=== PATIENT | female | born 1955 | race Hispanic/Latino ===

== ENCOUNTER → 2021-12-16 | Outpatient (CLI) | payer MEDICARE | LOC: RAH 11:03 | PROVIDERS: ATTEND Physician Assistant | DX: M48.061 Spinal stenosis, lumbar region without neurogenic claudication (principal); M47.816 Spondylosis without myelopathy or radiculopathy, lumbar region | CPT/HCPCS: 72114 ==

== ENCOUNTER → 2022-09-21 | Outpatient (CLI) | payer MEDICARE | END | disposition home or self-care (01) | LOC: RAH 08:36 | PROVIDERS: ATTEND Family Medicine | DX: N64.4 Mastodynia (principal); R10.11 Right upper quadrant pain | CPT/HCPCS: 76705 ==

== ENCOUNTER → 2022-09-26 | Outpatient (CLI) | payer MEDICARE | END | disposition home or self-care (01) | LOC: RAH 17:30 | PROVIDERS: ATTEND Family Medicine | DX: N64.4 Mastodynia (principal) ==

== ENCOUNTER → 2022-11-15 | Outpatient (CLI) | payer MEDICARE | END | disposition home or self-care (01) | LOC: RAH 14:11 | PROVIDERS: ATTEND Physician Assistant | DX: M43.16 Spondylolisthesis, lumbar region (principal); M41.26 Other idiopathic scoliosis, lumbar region; M54.50 Low back pain, unspecified; M48.07 Spinal stenosis, lumbosacral region | CPT/HCPCS: 72110 ==

== ENCOUNTER 2024-10-13 19:58 | Emergency (ER) | payer MEDICARE ==
[~2024-10-13] VITALS: Ht 160 cm; Wt 72.6 kg
[2024-10-13 22:48] VITALS: BP 126/74; PULSE 74; RESP 20; TEMP 98.6; O2SAT 100
[2024-10-13] MEDS: TRIAMCINOLONE ACETONIDE 40 MG/ML 1ML VIAL IM ONE (22:53)
[2024-10-13] MEDS: ketOROlac 60 MG VIAL (30MG/ML) IM ONE (22:53)
[2024-10-13] MEDS: ORPHENADRINE 60MG/2ML IM ONE (22:53)
--- NOTE | 2024-10-13 23:00 | ERN ---
ED Note History of Present Illness Stated Complaint: PAIN, HIGH BP Chief Complaint: Lower Extremity Pain/Injury Time Seen by MD: 20:02 Time Seen by Midlevel: 20:02 Dictation: The patient is a 69-year-old female with a history of diabetes, hypertension who presents to the emergency department with left lower leg pain. Patient reports that she has been dealing with this sciatic nerve pain for over a year but today got worse. Reports she has been seeing her primary doctor for this problem but is pending review of results of imaging with . Patient denies any recent traumas, denies any urinary or fecal incontinence Allergies: Coded Allergies: No Known Allergies (Unverified Allergy, Unknown, 10/13/24) Past Medical History Past Medical History: Diabetes-Type II, High Cholesterol, Hypertension Surgical History: Unknown RN Note Reviewed/Agreed w/PFSH: Yes Review of System Dictation Constitutional: Negative for fever,chills, and weight loss Eyes: Negative for injury, pain,redness, and discharge ENT: Negative for injury,pain or swelling Cardiovascular: Negative for chest pain, palpitations, and edema Respiratory: Negative for shortness of breath, cough, and wheezing, Abdomen/GI: Negative for abdominal pain, nausea, vomiting, diarrhea, and constipation Back: Negative for injury and pain : Negative for injury, bleeding and discharge MS/Extremity: Negative for injury and deformity positive for left lower leg pain Skin: Negative for rash, and discoloration Neuro: Negative for headache, weakness, numbness, tingling, and seizure Psych: Negative for suicide ideation, homicidal ideation, and hallucinations Initial Vital Sign VS Vital Signs Date Time Temp Pulse Resp B/P (MAP) Pulse Ox O2 Delivery O2 Flow Rate FiO2 10/13/24 20:16 98.6 64 20 96 Room Air 10/13/24 22:48 126/74 0 21 Physical Exam Dictation Vital Signs reviewed General Appearance: Alert, oriented x 3, no acute distress, well developed, nourished. Head and Face: non-traumatic. Eyes: PERRL, pink conjunctivas, eyelid no trauma, anterior chamber with arcus senilis. Ears: Pinnas intact and no signs of trauma or erythema ear canals clear and no discharge TM no erythema Nose: No discharge, no bleeding. Oropharynx: Mouth normal, tongue pink. pharynx clear,no erythema, tonsils no exudates, no abscesses noted, mucous membrane moist Neck: Supple, non-tender, no thyromegaly, no masses, no JVD, no bruits Breast:Deferred Chest:No tenderness, no crepitus, no paradoxical movement, no retractions Lungs:Clear, well-ventilated, symmetric, no rales, no wheezing, no rhonchi, no stridor, good breath sounds bilaterally Heart: Regular rate, regular rhythm, no murmur, no gallops Vascular: no peripheral edema, left dorsalis pedis 3+. Abdomen: Soft, positive bowel sounds, nondistended, no guarding, nontender, no rebound, no masses no hepatomegaly, no splenomegaly, no Mallory's sign, no hernias. Rectal: Deferred Genital: Deferred Neurological: Normal speech, motor function intact, sensory function intact Musculoskeletal: Neck nontender, full range of motion, back nontender, full range of motion, Extremities: nontender, full range of motion , left buttocks tenderness, full range of motion, no wounds, cap refill less than 3 seconds Skin: Color pink, dry, no turgor, no rash, no lacerations, no abrasions, no contusions. Lymphatic: Deferred Results (Laboratory/Radiology) Labs Reviewed?: Yes ED Course ED Course Orders Procedure Category Date Status Time Ketorolac 60mg/2ml PHA 10/13/24 Complete (Toradol 60mg/2ml) 20:30 Triamcinolone Acet PHA 10/13/24 Complete 40mg/Ml 1ml (Kenalog 20:30 Orphenadrine Citrate PHA 10/13/24 Complete (Norflex) 20:30 Current Medications Medications (Trade) Dose Ordered Sig/Tigist Route PRN Reason Start Time Stop Time Status Last Admin Dose Admin Ketorolac Tromethamine (toRADol 60MG/ 2ML) 30 mg ONCE ONCE IM 10/13/24 20:30 10/13/24 20:33 DC 10/13/24 22:53 Orphenadrine Citrate (Norflex) 60 mg ONCE ONCE IM 10/13/24 20:30 10/13/24 20:34 DC 10/13/24 22:53 Triamcinolone Acetonide (Kenalog 40) 40 mg ONCE ONCE IM 10/13/24 20:30 10/13/24 20:33 DC 10/13/24 22:53 Vital Signs Date Time Temp Pulse Resp B/P (MAP) Pulse Ox O2 Delivery O2 Flow Rate FiO2 10/13/24 22:48 98.6 74 20 126/74 100 Room Air* 0 21 10/13/24 20:16 98.6 64 20 96 Room Air Medical Decision Making MDM The patient is a 69-year-old female with a history of diabetes, hypertension who presents to the emergency department with left lower leg pain. Patient reports that she has been dealing with this sciatic nerve pain for over a year but today got worse. Reports she has been seeing her primary doctor for this problem but is pending review of results of imaging with DrEvelyn. Patient denies any recent tr aumas, denies any urinary or fecal incontinence Patient treated for chronic leg pain. Most likely related for sciatic nerve raj n. Patient has tenderness to left buttocks and radiates down her leg, neurovascularly intact. Patient will be discharged to follow up with primary doctor for further management. Differential diagnosis: Sciatic nerve pain, leg contusion, piriformis syndrome. Need for hospitalization: Patient does not meet criteria for hospitalization. There are no social concerns with this patient. DX & DISP Disposition: Discharge Departure Impression: Primary Impression: Sciatic nerve pain Condition: Stable Scripts Cyclobenzaprine HCl (Flexeril) 10 Mg Tab 5 MG PO TID for muscle sstiffness, #10 TAB 0 Refills Prov: CATHRYN PRUITT [employer] 10/13/24 Additional Instructions: Please follow up with your primary doctor in 1-2 days. If symptoms worsen p lease return to ER. FOLLOW-UP WITH PRIMARY CARE PROVIDER IN 1 TO 2 DAYS. TAKE MEDICATIONS DIRECTED HERE IN THE EMERGENCY ROOM. OKAY TO CONTINUE HOME MEDICATIONS UNLESS OTHERWISE DISCUSSED DURING YOUR VISIT IN THE EMERGENCY ROOM TODAY. RETURN TO YOUR NEAREST EMERGENCY ROOM IF SYMPTOMS WORSEN OR IF THERE IS NO IMPROVEMENT. CALL 911 IF YOU NEED IMMEDIATE ASSISTANCE. TAKE TYLENOL OR MOTRIN [id number] NEEDED AND IF NO CONTRAINDICATIONS ARE PRESENT. INCREASE ORAL HYDRATION. A WOUND CULTURE OR URINE CULTURE WAS ORDERED HERE IN THE EMERGENCY ROOM DEPARTMENT PLEASE FOLLOW-UP WITH PRIMARY CARE PROVIDER AND ADVISE THEM TO GET REPEAT PORTS FROM OUR FACILITY. IF YOU HAD ANY ANNY WRAP/SPLINTS THAT WERE APPLIED HERE, PLEASE DO NOT REMOVE THEM UNTIL YOU SEE YOUR PRIMARY CARE OR SPECIALTY. Referrals: FAUSTO ROSENTHAL MD (PCP) Time of Disposition: 23:05 I have reviewed the case, and I agree with, Diagnosis and Plan CATHRYN PRUITT [facility] Oct 13, 2024 23:00
[2024-10-13] MEDS ORDERED: CYCL10TA16 PO (23:07)
== END 2024-10-13 23:18 | disposition home or self-care (01) ==
LOC: EDH 19:58
DX: M54.32 Sciatica, left side (principal); E11.9 Type 2 diabetes mellitus without complications; E78.00 Pure hypercholesterolemia, unspecified; I10 Essential (primary) hypertension
CPT/HCPCS: 99284; 96372 ×3; J1885; J3301; J2360